=== PATIENT | female | born 1985 | race Caucasian/White ===

== ENCOUNTER 2022-04-15 09:14 | Outpatient (CLI) | payer OTHER, SELFPAY ==
--- NOTE | ~2022-04-15 | MMUS_ITS ---
EXAMINATION: MM diagnostic sanjana BI w christine, US breast LT limited HISTORY: Left palpable breast lump with pain TECHNIQUE: ML, MLO and CC 3-D tomosynthesis images of both breasts were performed and synthetic 2-D i mages were generated. CAD analysis was submitted and interpreted. High resolution targeted left breas t ultrasound examination of the area of clinical complaint at 2-3:00 was performed. COMPARISON: None; baseline examination BREAST PARENCHYMAL COMPOSITION: The breasts are heterogeneously dense, which may obscure small masses . FINDINGS: MAMMOGRAPHIC FINDINGS: No suspicious mass or architectural distortion, malignant calcification, skin thickening or retractio n is detected. ULTRASOUND: Ultrasound imaging at area of clinical complaint at the left breast at 2-3:00 reveals no suspicious m ass or shadowing or other significant abnormality. IMPRESSION: 1. No mammographic evidence of malignancy 2. Routine annual screening beginning at age 40 is recommended BI-RADS Category 1: Negative Reviewed, dictated and finalized at location A. [employer] IMPRESSION: 1. No mammographic evidence of malignancy 2. Routine annual screening beginning at age 40 is recommended BI-RADS Category 1: Negative
== END 2022-04-15 09:15 | disposition home or self-care (01) ==
PROVIDERS: PCP Physician Assistant; Visit Provider Nurse Practitioner Family
DX: N64.4 Mastodynia (principal)
CPT/HCPCS: 76642; 77062; 77066; G0279